=== PATIENT | female | born 2005 | race Caucasian/White ===

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

== ENCOUNTER 2024-10-21 14:21 | Emergency (ER) | payer MEDICAID, OTHER ==
[~2024-10-21] VITALS: Ht 160 cm; Wt 75.0 kg
[2024-10-21 14:26] VITALS: O2SAT 100
[2024-10-21 14:30] VITALS: TEMP 37.1; O2SAT 98
[2024-10-21 14:58] LABS: BASOPHILS % 0.2 % (0.0-2.0); EOSINOPHILS % 0.2 % (0.0-5.0); HEMATOCRIT. 43.1 % (36.0-48.0); HEMOGLOBIN. 14.3 g/dL (12.0-16.0); LYMPHOCYTES % 13.6 % (20.0-50.0); MEAN CORPUSCULAR HEMOGLOBIN 27.8 pg (28.0-32.0); MEAN CORPUSCULAR HGB CONC 33.2 g/dL (31.0-37.0); MEAN CORPUSCULAR VOLUME 83.9 fL (81.0-99.0); MONOCYTES % 2.9 % (2.0-8.0); NEUTROPHILS % 83.1 % (40.0-76.0); PLATELET 181 x1000/uL (130-400); RED BLOOD CELL COUNT 5.14 mill/uL (4.2-5.4); RED CELL DISTRIBUTION WIDTH 12.9 % (11.6-14.6); WHITE BLOOD COUNT 14.1 x1000/uL (4.5-11.0)
[2024-10-21 15:06] LABS: CLARITY URINE CLEAR (CLEAR); COLOR URINE YELLOW (YELLOW); GLUCOSE URINE NEGATIVE (NEGATIVE); KETONES URINE NEGATIVE (NEGATIVE); LEUKOCYTE ESTERASE URINE TRACE (NEGATIVE); NITRITE URINE NEGATIVE (NEGATIVE); OCCULT BLOOD URINE 3+ (NEGATIVE); PROTEIN URINE TRACE (NEGATIVE); SPECIFIC GRAVITY URINE 1.018 (1.005-1.030); UROBILINOGEN URINE 0.2 E.U./dL (0.2-1.0)
[2024-10-21 15:06] LABS: CALCIUM 9.8 mg/dL (8.7-10.4); CARBON DIOXIDE 28 mEq/L (21-32)
[2024-10-21 15:11] LABS: CREATININE 0.8 mg/dL (0.6-1.0); GLUCOSE 105 mg/dL (70-105); UREA NITROGEN BLOOD 10 mg/dL (9-23)
[2024-10-21 15:15] LABS: BACTERIA URINE 1+; RBC URINE 50-100 /hpf (0-2); SQUAMOUS EPITHELIAL CELL URINE 2+ /lpf (RARE/1+); YEAST URINE NONE SEEN
[2024-10-21 15:16] LABS: CHLORIDE 108 mEq/L (98-107); POTASSIUM 4.7 mEq/L (3.5-5.1); SODIUM 142 mEq/L (136-145)
[2024-10-21 15:42] LABS: HCG SCREEN NEGATIVE
[2024-10-21 16:12] VITALS: BP 137/84; PULSE 61; RESP 18
[2024-10-21] MEDS: KETOROLAC 30MG/ML VIAL IM ONE (16:12)
[2024-10-21] MEDS: ONDANSETRON 4MG ODT PO ONE (16:13)
[2024-10-21 16:21] LABS: ALANINE AMINOTRANSFERASE 23 IU/L (10-49); ALBUMIN 4.7 g/dL (3.2-4.8); ASPARTATE AMINOTRANSFERASE 20 IU/L (<34); BILIRUBIN DIRECT 0.2 mg/dL (<=3.0); BILIRUBIN TOTAL 0.6 mg/dL (0.1-1.0); PROTEIN TOTAL 7.4 g/dL (6.0-8.3)
[2024-10-21] MEDS ORDERED: NITR100C MT (17:53)
== END 2024-10-21 18:09 | disposition home or self-care (01) ==
LOC: ER 14:38
DX: N39.0 Urinary tract infection, site not specified (principal)
CPT/HCPCS: 99285; 74176; 76830; 76856; 80076; 80048; 81003; 81025; 84703; 85025; 36415; 96372; J1885; Q0162